=== PATIENT | male | born 1955 | race Caucasian/White ===

== ENCOUNTER 2021-07-19 04:39 | Emergency (ER) | payer MEDICARE, MEDICAID ==
[2021-07-19 05:41] LABS: #Basophils 0.1 thou/uL (0.0-0.2); #Eosinphils 0.2 thou/uL (0.0-0.7); #Lymphocytes 4.1 thou/uL (1.20-3.40); #Monocytes 1.1 thou/uL (0.11-0.59); #Neutrophils 7.3 thou/uL (1.40-6.50); %Eosinophils 1.9 % (0.0-10.0); %Lymphocytes 31.6 % (21.0-51.0); %Monocytes 8.4 % (0.0-10.0); %Neutrophils 57.2 % (42.0-75.0); Mean Corpuscular HGB CONC 34.3 g/dL (32.0-36.0); Mean Corpuscular Hemoglobin 30.6 pg (27.0-31.0); Mean Platelet Volume 9.2 fL (7.4-10.4); Platelet Count 177 thou/uL (130-400); RBC Distribution Width 12.1 % (11.5-14.5); Red Blood Cell (RBC) Count 5.23 mill/uL (4.70-6.10); White Blood Cell (WBC) Count 12.8 thou/uL (4.8-10.8)
[2021-07-19 06:04] LABS: ALT (SGPT) 21 U/L (8-55); AST (SGOT) 23 U/L (5-34); Albumin 4.1 g/dL (3.4-4.8); Alkaline Phosphatase 79 U/L (40-110); Anion Gap 11 mmol/L (10-20); BUN (Urea Nitrogen) 10 mg/dL (8.4-25.7); Bilirubin, Total 0.3 mg/dL (0.2-1.2); Calc. Creatinine Clearance 0 mL/min (70-130); Calcium 9.1 mg/dL (7.8-10.44); Carbon Dioxide 26 mmol/L (23-31); Chloride 101 mmol/L (98-107); Globulin 3.1 g/dL (2.4-3.5); Glucose 108 mg/dL (80-115); Potassium 3.6 mmol/L (3.5-5.1); Protein, Total 7.2 g/dL (5.8-8.1); Sodium 134 mmol/L (136-145)
[2021-07-19 14:47] LABS: SARS-CoV-2 PCR by NAA Not Detected (NotDetected)
== END 2021-07-19 06:49 | disposition home or self-care (01) ==
LOC: ERS 04:39
DX: F41.9 Anxiety disorder, unspecified (principal); Z20.822 Contact with and (suspected) exposure to COVID-19; I10 Essential (primary) hypertension; F17.210 Nicotine dependence, cigarettes, uncomplicated
CPT/HCPCS: 80053; 84484; 85025; 93005; U0003; U0005; 36415

== ENCOUNTER 2022-03-14 16:00 | Outpatient (CLI) | payer MEDICARE, MEDICAID | END 2022-03-14 16:01 | disposition home or self-care (01) | LOC: SLEEPLAB 16:00 | PROVIDERS: ATTEND Family Medicine | DX: G47.33 Obstructive sleep apnea (adult) (pediatric) (principal); F41.9 Anxiety disorder, unspecified; R53.83 Other fatigue; R06.83 Snoring; G47.00 Insomnia, unspecified; F32.9 Major depressive disorder, single episode, unspecified | CPT/HCPCS: 95800 ==

== ENCOUNTER 2023-05-24 13:26 | Outpatient (CLI) | payer MEDICARE, MEDICAID | END 2023-05-24 13:27 | disposition home or self-care (01) | LOC: BICMRI 13:26 | PROVIDERS: ATTEND Family Medicine | DX: M51.9 Unspecified thoracic, thoracolumbar and lumbosacral intervertebral disc disorder (principal); G62.9 Polyneuropathy, unspecified; M47.816 Spondylosis without myelopathy or radiculopathy, lumbar region; M47.817 Spondylosis without myelopathy or radiculopathy, lumbosacral region; M47.815 Spondylosis without myelopathy or radiculopathy, thoracolumbar region; M47.814 Spondylosis without myelopathy or radiculopathy, thoracic region; I71.40 Abdominal aortic aneurysm, without rupture, unspecified | CPT/HCPCS: 72157; 72158; 82565 ==

== ENCOUNTER 2023-06-20 09:03 | Inpatient (IN) | payer MEDICARE, MEDICAID ==
[2023-06-20] MEDS ORDERED: Heparin 10,000 UNITS/ 10 ML VIAL ONE (09:10)
[2023-06-20] MEDS ORDERED: Bupivacaine PF 0.5% 30 ML VIAL ONE (09:24)
[2023-06-20] MEDS ORDERED: Dexamethasone 4 mg/ml Vial ONE (09:24)
[2023-06-20] MEDS ORDERED: CEFAZOLIN 2 GM VIAL ONE ×2 (09:32→18:10)
[2023-06-20] MEDS ORDERED: Sodium Chloride 0.9% 100 ML ONE ×2 (09:32→18:11)
[2023-06-20 09:48] LABS: #Basophils 0.1 thou/uL (0.0-0.2); #Eosinphils 0.4 thou/uL (0.0-0.7); #Monocytes 1.1 thou/uL (0.11-0.59); #Neutrophils 8.5 thou/uL (1.40-6.50); %Basophils 0.4 % (0.0-1.0); %Eosinophils 2.6 % (0.0-10.0); %Lymphocytes 25.8 % (21.0-51.0); %Monocytes 7.8 % (0.0-10.0); %Neutrophils 62.9 % (42.0-75.0); Hematocrit 49.5 % (42.0-52.0); Mean Corpuscular HGB CONC 32.3 g/dL (32.0-36.0); Mean Corpuscular Hemoglobin 28.5 pg (27.0-31.0); Mean Corpuscular Volume 88.1 fl (78.0-98.0); Mean Platelet Volume 11.4 fL (7.4-10.4); Platelet Count 190 10x3/uL (130-400); Red Blood Cell (RBC) Count 5.62 mill/uL (4.70-6.10); White Blood Cell (WBC) Count 13.6 10x3/uL (4.8-10.8)
[2023-06-20] MEDS ORDERED: Phenylephrine 10 MG/ML VIAL ONE (09:58)
[2023-06-20] MEDS ORDERED: fentaNYL PF 100 MCG/2 ML SYRINGE ONE (09:58)
[2023-06-20 10:14] LABS: Anion Gap 15 mmol/L (10-20); BUN (Urea Nitrogen) 11 mg/dL (8.4-25.7); Calc. Creatinine Clearance 119 mL/min (70-130); Calcium 9.2 mg/dL (7.8-10.44); Carbon Dioxide 21 mmol/L (23-31); Chloride 104 mmol/L (98-107); Estimated GFR 96; Glucose 107 mg/dL (80-115); Potassium 4.2 mmol/L (3.5-5.1); Sodium 136 mmol/L (136-145)
[2023-06-20] MEDS ORDERED: Ondansetron PF 4 MG/2 ML Vial ONE (10:16)
[2023-06-20] MEDS ORDERED: Dexamethasone 20 MG/5 ML VIAL ONE (10:16)
[2023-06-20] MEDS ORDERED: Rocuronium Bromide 10 MG/ML (10ML VIAL) ONE (10:16)
[2023-06-20] MEDS ORDERED: PROPOFOL 200 MG/20 ML VIAL ONE (10:16)
[2023-06-20] MEDS ORDERED: Lidocaine 1% PF 5 ML VIAL ONE (10:16)
[2023-06-20] MEDS ORDERED: Labetalol HCl 100 MG/20 ML VIAL ONE (10:16)
[2023-06-20] MEDS ORDERED: SUGAMMADEX SODIUM 200 MG/2 ML VIAL ONE (11:09)
[2023-06-20] MEDS ORDERED: Protamine Sulfate 50 MG/5 ML VIAL ONE (11:37)
[2023-06-20] MEDS ORDERED: Acetaminophen 325 MG TAB PO PRN (12:02)
[2023-06-20] MEDS ORDERED: Ondansetron PF 4 MG/2 ML Vial IVP PRN (12:02)
[2023-06-20] MEDS ORDERED: traMADol HCl 50 MG TAB PO PRN (12:02)
[2023-06-20] MEDS ORDERED: fentaNYL 50 mcg/mL 1 mL Vial SLOW IVP PRN (12:02)
[2023-06-20] MEDS ORDERED: Ipratropium/Albuterol 3 ML NEB NEB PRN (12:02)
[2023-06-20] MEDS ORDERED: hydrALAZINE 20 MG/ML VIAL SLOW IVP PRN (12:02)
[2023-06-20] MEDS: Sodium Chloride 0.9% 1,000 ML IV SCH ×2 (13:24→22:54)
[2023-06-20] MEDS: CEFAZOLIN 2 GM in Sodium Chloride 0.9% 100 ML IVPB SCH (18:08)
[2023-06-20 20:43] VITALS: BMI 29.7
[2023-06-20] MEDS: Mometasone 100 MCG/Formoterol 5 MCG 120 PUFF INHALER INH SCH (21:09)
[2023-06-20] MEDS ORDERED: Diazepam 5 MG TAB PO PRN (21:28)
[2023-06-21] MEDS: CEFAZOLIN 2 GM in Sodium Chloride 0.9% 100 ML IVPB SCH (03:09)
[2023-06-21 04:38] LABS: #Monocytes 1.3 thou/uL (0.11-0.59); #Neutrophils 16.8 thou/uL (1.40-6.50); %Basophils 0.1 % (0.0-1.0); %Eosinophils 0.1 % (0.0-10.0); %Lymphocytes 8.2 % (21.0-51.0); %Monocytes 6.4 % (0.0-10.0); %Neutrophils 84.7 % (42.0-75.0); Hematocrit 44.9 % (42.0-52.0); Hemoglobin 14.7 g/dL (14.0-18.0); Mean Corpuscular HGB CONC 32.7 g/dL (32.0-36.0); Mean Corpuscular Hemoglobin 28.5 pg (27.0-31.0); Mean Platelet Volume 11.6 fL (7.4-10.4); Platelet Count 166 10x3/uL (130-400); RBC Distribution Width 13.9 % (11.5-14.5); Red Blood Cell (RBC) Count 5.16 mill/uL (4.70-6.10); White Blood Cell (WBC) Count 19.9 10x3/uL (4.8-10.8)
[2023-06-21 04:51] VITALS: BP 115/65; TEMP 97.9
[2023-06-21 05:02] LABS: Anion Gap 12 mmol/L (10-20); BUN (Urea Nitrogen) 9 mg/dL (8.4-25.7); Calc. Creatinine Clearance 116 mL/min (70-130); Calcium 8.7 mg/dL (7.8-10.44); Carbon Dioxide 22 mmol/L (23-31); Chloride 106 mmol/L (98-107); Estimated GFR 96; Glucose 120 mg/dL (80-115); Potassium 4.2 mmol/L (3.5-5.1); Sodium 136 mmol/L (136-145)
[2023-06-21] MEDS: Mometasone 100 MCG/Formoterol 5 MCG 120 PUFF INHALER INH SCH (07:26)
[2023-06-21] MEDS ORDERED: Aspirin 325 mg Enteric Coated Tablet PO SCH (09:00)
== END 2023-06-21 08:45 | disposition home or self-care (01) | DRG 269 ==
LOC: SURG A 09:03 → 2NO 19:19
PROVIDERS: ADMIT Thoracic Surgery (Cardiothoracic Vascular Surgery); ATTEND Thoracic Surgery (Cardiothoracic Vascular Surgery)
PROC: 04V03DZ Restriction of Abdominal Aorta with Intraluminal Device, Percutaneous Approach (ICD-10-PCS; principal; 2023-06-20)
DX: I71.40 Abdominal aortic aneurysm, without rupture, unspecified (principal); E78.5 Hyperlipidemia, unspecified; E11.9 Type 2 diabetes mellitus without complications; I10 Essential (primary) hypertension; N40.0 Benign prostatic hyperplasia without lower urinary tract symptoms; Z79.899 Other long term (current) drug therapy
CPT/HCPCS: 36415; 71045; 80048; 85025; 86850; 86900; 86901; 93005; 93010; C1760; C1769; C1894; J1100; J1644; J2370; J2405; J2704; J2720; J3490; J7050; S0020

== ENCOUNTER 2023-11-30 15:17 | Outpatient (CLI) | payer OTHER ==
[~2023-11-30 15:17] MED LIST: Iopamidol 370 76% 100 ML VIAL ONE
== END 2023-11-30 15:18 | disposition home or self-care (01) ==
LOC: CT 15:17
PROVIDERS: ATTEND Thoracic Surgery (Cardiothoracic Vascular Surgery)
DX: I71.43 Infrarenal abdominal aortic aneurysm, without rupture (principal)
CPT/HCPCS: 74174; 82565; Q9967

== ENCOUNTER 2024-06-05 14:32 | Outpatient (CLI) | payer OTHER | END 2024-06-05 14:33 | disposition home or self-care (01) | LOC: BICMRI 14:32 | PROVIDERS: ATTEND Family Medicine | DX: Z12.2 Encounter for screening for malignant neoplasm of respiratory organs (principal); F17.210 Nicotine dependence, cigarettes, uncomplicated; J43.1 Panlobular emphysema; S43.402A Unspecified sprain of left shoulder joint, initial encounter; Z71.6 Tobacco abuse counseling; M75.112 Incomplete rotator cuff tear or rupture of left shoulder, not specified as traumatic; M19.012 Primary osteoarthritis, left shoulder; R60.0 Localized edema | CPT/HCPCS: 71271 ==